=== PATIENT | female | born 1950 | race Caucasian/White ===

== ENCOUNTER 2019-02-19 18:05 | Emergency (ER) | payer MEDICARE, BC ==
[~2019-02-19] VITALS: Ht 154.9 cm; Wt 81.6 kg
--- OUTSIDE RECORDS SUMMARY | 2019-02-19 18:08 | XMS REPORT | Clinical Summary ---
Author Author [facility] Organization [facility] Address Unknown Phone Unavailable Care Team Providers Care Livestock Speculator Name Role Phone Corey Estrada MD PCP Allergies No Known Allergies Medications End Date Status Medication Sig Dispensed Refills Start Date Active acetaminophen (TYLENOL Take by 0 ORAL) mouth. Active cetirizine (ZyrTEC) 5 MG Take 5 mg by 0 tablet mouth daily. Active naproxen sodium (ALEVE Take by mouth 0 ORAL) as needed. 08/25/2018 Discontinued metoprolol succinate XL Take 25 mg by 0 (TOPROL-XL) 25 mg 24 hr mouth daily. tablet 08/25/2018 Discontinued tiZANidine (ZANAFLEX) 2 TAKE ONE (1) 3 MG tablet TABLET(S) BY 7 MOUTH EVERY EIGHT HOURS NEEDED FOR MUSCLE SPASMS FOR UP TO 30 DAYS. 08/25/2018 Discontinued gabapentin (NEURONTIN) May take one 90 capsule 2 100 mg capsule po tid with 7 first dose at night 10/29/2018 cetirizine (ZyrTEC) 5 MG Take 1 tablet 30 tablet 0 tablet (5 mg total) 8 by mouth daily as needed for allergies for up to 30 days. 10/29/2018 guaiFENesin (ROBITUSSIN) Take 10 mL 118 mL 0 100 mg/5 mL syrup (200 mg 8 total) by mouth every 4 (four) hours as needed for cough for up to 30 days. 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 Lymphedema 05/25/2018 Neuropathy 09/22/2017 Pitting edema 06/29/2017 Paraplegia 04/20/2017 Gait abnormality 04/20/2017 Spasticity 04/20/2017 Bilateral foot-drop 04/20/2017 Ischial bursitis of right side 04/20/2017 Bilateral lumbar radiculopathy Polyneuropathy, idiopathic progressive Cervical radiculopathy Myopathy Encounters Care Team Description Date Type Specialty Wilner Stephen MD 01/30/2019 Telephone Neurology Sonia Loera MD 01/11/2019 Lab Lab Wilner Stephen MD Shroff, Sheetal, MD Myopathy (Primary Dx) 01/11/2019 Procedure visit Neurology Emiliana Barba RN Pre-procedure lab exam (Primary Dx); Myopathy 12/06/2018 Orders Only Neurology Emiliana Barba RN Myopathy (Primary Dx) 11/30/2018 Orders Only Neurology Wilner Stephen MD Bilateral lumbar radiculopathy (Primary Dx); Myopathic syndrome; Bilateral foot-drop; Gait abnormality; Cervical radiculopathy; Polyneuropathy, idiopathic progressive; Spasticity; Primary Parkinsonism (HCC); Lymphedema 11/17/2018 Office Visit Neurology Nick Peck MD Janjua, Ejaz, Dyspnea, unspecified type (Primary Dx); Bilateral lumbar radiculopathy; Pitting edema; Abnormal gait; Spasticity 09/28/2018 Emergency General Internal Medicine - 09/29/2018 Wilner Stephen MD Proximal limb muscle weakness; Muscle spasticity 09/14/2018 Hospital Radiology Encounter Emiliana Barba RN Proximal limb muscle weakness (Primary Dx); Muscle spasticity 08/31/2018 Orders Only Neurology Wilner Stephen MD Paraplegia (HCC) (Primary Dx); Proximal limb muscle weakness; Muscle spasticity; Fatigue, unspecified type; Spasticity; Polyneuropathy, idiopathic progressive; Bilateral lumbar radiculopathy; Bilateral foot-drop; Gait abnormality 08/25/2018 Office Visit Neurology Corey Estrada MD Dysphagia, oropharyngeal phase 08/08/2018 Hospital Radiology Encounter Corey Estrada MD Localized edema 08/08/2018 Hospital Procedural Cardiology Encounter Corey Estrada MD Dysphagia, oropharyngeal phase (Primary Dx); Localized edema 07/21/2018 Transcribe Access Orders Wilner Stephen MD 06/28/2018 Telephone Neurology Carolina Alexander MD Spastic paraplegia 06/16/2018 Hospital Radiology Encounter Carolina Alexander MD Spastic paraplegia 06/16/2018 Hospital Radiology Encounter Carolina Alexander MD Spastic paraplegia 06/16/2018 Hospital Radiology Encounter Carolina Alexander MD Spastic paraplegia (Primary Dx); Neuropathy; Polyneuropathy, idiopathic progressive; Ischial bursitis of right side; Spasticity; Bilateral foot-drop; Gait abnormality; Pitting edema; Osteoarthritis of cervical spine, unspecified spinal osteoarthritis complication status; Osteoarthritis of lumbar spine, unspecified spinal osteoarthritis complication status 05/25/2018 Clinical Physical Medicine and Support Rehabilitation after 02/18/2018 Family History Medical History Relation Name Comments Alcohol abuse Mother Diabetes Mother Hepatitis Mother Relation Name Status Comments Mother Social History Date Tobacco Use Types Packs/Day Years Used Former Smoker Smokeless Tobacco: Never Used Alcohol Use Drinks/Week oz/Week Comments No Sex Assigned at Date Recorded Not on file Industry Job Start Date Occupation Not on file Not on file Not on file Travel End Travel History Travel Start No recent travel history available. Last Filed Vital Signs Time Taken Vital Sign Reading 01/11/2019 1:03 PM CDT Blood Pressure 129/85 01/11/2019 1:03 PM CDT Pulse 80 09/29/2018 7:33 AM [employer] Temperature 36.4 C (97.6 F) 09/29/2018 7:33 AM [employer] Respiratory Rate 14 09/29/2018 7:33 AM [employer] Oxygen Saturation 100% - Inhaled Oxygen - Concentration 01/11/2019 1:03 PM CDT Weight 86.2 kg (190 lb) 01/11/2019 1:03 PM CDT Height 154.9 cm (5' 1") 01/11/2019 1:03 PM CDT Body Mass Index 35.9 Plan of Treatment Health Maintenance Due Date Last Done Comments COLON CANCER SCREENING 1998 SHINGLES VACCINES (#1) 1998 65+ PNEUMOCOCCAL VACCINE 2013 (1 of 2 - PCV13) PNEUMOCOCCAL 2013 POLYSACCHARIDE VACCINE AGE 65 AND OVER BREAST CANCER SCREENING 08/03/2016 08/03/2014 INFLUENZA VACCINE 05/25/2019 Procedures Comments Procedure Name Priority Date/Time Associated Diagnosis SURGICAL PATHOLOGY Routine 01/11/2019 REQUEST 4:21 PM CDT PARTIAL THROMBOPLASTIN Routine 01/04/2019 Myopathy TIME (PTT) 12:09 PM CDT Pre-procedure lab exam PROTHROMBIN TIME WITH INR Routine 01/04/2019 Myopathy 12:09 PM CDT Pre-procedure lab exam CBC WITH PLATELET AND Routine 01/04/2019 Myopathy DIFFERENTIAL 12:09 PM CDT Pre-procedure lab exam MISCELLANEOUS REFERRAL Routine 09/29/2018 TEST 12:35 PM [employer] CREATINE KINASE, TOTAL Routine 09/29/2018 (CPK) 6:09 AM [employer] ESTIMATED GFR Routine 09/29/2018 6:09 AM [employer] BASIC METABOLIC PANEL Routine 09/29/2018 6:09 AM [employer] HC COMPLETE BLD COUNT Routine 09/29/2018 W/AUTO DIFF 6:09 AM [employer] CENTROMERE ANTIBODY Routine 09/28/2018 6:30 PM [employer] SCL-70 ANTIBODY Routine 09/28/2018 6:30 PM [employer] XR CHEST 2 VW STAT 09/28/2018 9:17 AM [employer] ECG ED PRELIMINARY Routine 09/28/2018 INTERPRETATION 9:01 AM [employer] ESTIMATED GFR STAT 09/28/2018 9:00 AM [employer] B NATRIURETIC PEP, I-STAT STAT 09/28/2018 9:00 AM [employer] TROPONIN, I-STAT STAT 09/28/2018 9:00 AM [employer] BASIC METABOLIC PANEL STAT 09/28/2018 9:00 AM [employer] HC COMPLETE BLD COUNT STAT 09/28/2018 W/AUTO DIFF 9:00 AM [employer] ECG 12-LEAD STAT 09/28/2018 8:56 AM [employer] EMG Routine 09/20/2018 Proximal limb muscle 3:04 PM [employer] weakness Muscle spasticity MRI THORACIC SPINE WO Routine 09/14/2018 Proximal limb muscle CONTRAST 10:26 AM [employer] weakness Muscle spasticity CBC WITH PLATELET AND Routine 08/31/2018 Proximal limb muscle DIFFERENTIAL 10:44 AM [employer] weakness Muscle spasticity COMPREHENSIVE METABOLIC Routine 08/31/2018 Proximal limb muscle PANEL 10:44 AM [employer] weakness Muscle spasticity HTLV I/II AB WITH REFLEX Routine 08/31/2018 Proximal limb muscle TO CONFIRMATION 10:44 AM [employer] weakness Muscle spasticity C-REACTIVE PROTEIN Routine 08/31/2018 Proximal limb muscle 10:44 AM [employer] weakness Muscle spasticity CREATINE KINASE, TOTAL Routine 08/31/2018 Proximal limb muscle (CPK) 10:44 AM [employer] weakness Muscle spasticity ALDOLASE, SERUM Routine 08/31/2018 Proximal limb muscle 10:44 AM [employer] weakness Muscle spasticity SEDIMENTATION RATE Routine 08/31/2018 Proximal limb muscle 10:44 AM [employer] weakness Muscle spasticity MEÑO SCREEN W IFA W REFLEX Routine 08/31/2018 Proximal limb muscle TO TITER 10:44 AM [employer] weakness Muscle spasticity FL ESOPHAGRAM COMPLETE Routine 08/08/2018 Dysphagia, oropharyngeal 11:36 AM CDT phase US DUPLEX VENOUS LOWER Routine 08/08/2018 Localized edema EXTREMITY BILATERAL 10:50 AM CDT MRI LUMBAR SPINE WO Routine 06/16/2018 Spastic paraplegia CONTRAST 2:20 PM CDT MRI CERVICAL SPINE WO Routine 06/16/2018 Spastic paraplegia CONTRAST 1:59 PM CDT MRI BRAIN WO CONTRAST Routine 06/16/2018 Spastic paraplegia 1:32 PM CDT OR NEEDLE EMG GUIDANCE Routine 05/25/2018 Spastic paraplegia FOR CHEMODENERVATION 2:45 PM CDT OR CHEMODENERVATION 1 Routine 05/25/2018 Spastic paraplegia EXTREMITY EA ADDL 1-4 2:45 PM CDT MUSCLE OR CHEMODENERVATION ONE Routine 05/25/2018 Spastic paraplegia EXTREMITY 1-4 MUSCLE 2:45 PM CDT after 02/18/2018 Results * Surgical pathology request (01/11/2019 4:21 PM CDT) [facility] DEPARTMENT OF PATHOLOGY AND GENOMIC MEDICINE Surgical pathology report See link below for PDF Lab [facility] DEPARTMENT OF Report PATHOLOGY AND GENOMIC MEDICINE Result status This is Final Report for [facility] DEPARTMENT OF [id number] PATHOLOGY AND GENOMIC MEDICINE Performing Organization Address City/State/Zipcode Phone Number [facility] DEPARTMENT OF [address] [place] [address] PATHOLOGY AND GENOMIC MEDICINE * Partial thromboplastin time, activated (01/04/2019 12:09 PM CDT) PTT 26 22 - 34 sec [employer] Comment: CHANTILLY This test has not been validated for monitoring unfractionated heparin therapy. For testing that is validated for this type of therapy, please refer to the Heparin Anti-Xa assay (test code 60918). For additional information, please refer to http://[employer].SEJENT/faq/VMR549 (This link is being provided for informational/educational purposes only.) Specimen Blood Resulting Agency Comment Performing Organization Information: Site ID: [id number] Name: [facility] Lab Address: [address] [place] [id number] Director: Yamileth Reilly Performing Organization Address City/[facility]/Zipcode Phone Number [place] [phone] * Prothrombin time with INR (01/04/2019 12:09 PM CDT) INR 0.9 [facility] Comment: [place]ANTILLY Reference Range 0.9-1.1 Moderate-intensity Warfarin Therapy 2.0-3.0 Higher-intensity Warfarin Therapy 3.0-4.0 Prothrombin time 9.9 9.0 - 11.5 sec [facility] Comment: [place] For more information on this test, go to: http://education.StoneRiver/faq/YSV825 Specimen Blood Resulting Agency Comment Performing Organization Information: Site ID: [id number] Name: [facility] Address: [address] [place], [place] [id number] Director: Yamileth Reilly Performing Organization Address City/[facility]/Zipcode Phone Number [place] [address] [address] * CBC with platelet and differential (01/04/2019 12:09 PM CDT) Only the most recent of 4 results within the time period is included. WBC 3.7 (L) 3.8 - 10.8 Thousand/uL [facility] RBC 4.69 3.80 - 5.10 Million/uL [facility] HGB 13.6 11.7 - 15.5 g/dL [facility] HCT 40.9 35.0 - 45.0 % [facility] MCV 87.2 80.0 - 100.0 fL [facility] MCH 29.0 27.0 - 33.0 pg [facility] MCHC 33.3 32.0 - 36.0 g/dL [facility] RDW 12.7 11.0 - 15.0 % [facility] Platelet count 256 140 - 400 Thousand/uL [facility] MPV 10.6 7.5 - 12.5 fL [facility] Neutrophils, absolute 1,761 1,500 - 7,800 cells/uL [facility] Lymphocytes, absolute 1,513 850 - 3,900 cells/uL [facility] Monocytes, absolute 259 200 - 950 cells/uL [facility] Eosinophils, absolute 137 15 - 500 cells/uL [facility] Basophils, absolute 30 0 - 200 cells/uL [facility] [employer] CHANTILLY Neutrophils 47.6 % [facility] Lymphocytes 40.9 % [facility] Monocytes 7.0 % [facility] Eosinophils 3.7 % [facility] Basophils + RC 0.8 % [employer] [facility] Specimen Blood Resulting Agency Comment Performing Organization Information: Site ID: [id number] Name: [facility] Lab Address: [address] [place] [address] Director: Yamileth Reilly Performing Organization Address [facility] Phone Number [place] [address] [address] * Miscellaneous referral test (09/29/2018 12:35 PM [employer]) [facility] test name Myositis Extended Panel [facility] Misc test result see note [facility] Comment: Myositis Extended Panel [facility] test code [id number] SSA-52 (Ro52) (MATILDE) Antibody, IgG 36 AU/mL (Ref Interval: 0-40) INTERPRETIVE INFORMATION: SSA-52 (Ro52) (MATILDE) Antibody, IgG 29 AU/mL or Less ............. Negative 30 - 40 AU/mL ................ Equivocal 41 AU/mL or Greater .......... Positive SSA-52 (Ro52) and/or SSA-60 (Ro60) antibodies are associated with a diagnosis of Sjogren syndrome, systemic lupus erythematosus (SLE), and systemic sclerosis. SSA-52 antibody overlaps significantly with the major SSc-related antibodies. SSA-52 (Ro52) antibody occurs frequently in patients with inflammatory myopathies, often in the presence of interstitial lung disease. - - - - - - - - - - - - - - - - - - - - - - - - - - - - - - SSA-60 (Ro60) (MATILDE) Antibody, IgG 9 AU/mL (Ref Interval: 0-40) REFERENCE INTERVAL: SSA-60 (Ro60) (MATILDE) Antibody, IgG 29 AU/mL or Less ............. Negative 30 - 40 AU/mL ................ Equivocal 41 AU/mL or Greater .......... Positive - - - - - - - - - - - - - - - - - - - - - - - - - - - - - - Ribonucleic Protein (U1) (MATILDE) Ab, IgG 0 AU/mL (Ref Interval: 0-40) INTERPRETIVE INFORMATION: Ribonucleic Protein (MATILDE)Antibody, IgG 29 AU/mL or Less ............. Negative 30 - 40 AU/mL ................ Equivocal 41 AU/mL or Greater .......... Positive BENCH EXAMINER antibody is seen in 95-100 percent of mixed connective tissue disease and is considered specific for this syndrome if other antibodies are negative; BENCH EXAMINER is also present in 20-30 percent of systemic lupus erythematosus and 15-25 percent of progressive systemic sclerosis. BENCH EXAMINER antigens also contain epitopes that are immunologically identical to free Stephen antigens, therefore, the Stephen antibody response must be considered when interpreting BENCH EXAMINER results. - - - - - - - - - - - - - - - - - - - - - - - - - - - - - - Radha-1 (Histidyl-tRNA Synthetase) Ab, IgG 0 AU/mL (Ref Interval: 0-40) INTERPRETIVE INFORMATION:Radha-1 Antibody, IgG 29 AU/mL or less.........Negative 30-40 AU/mL..............Equivocal 41 AU/mL or greater......Positive - - - - - - - - - - - - - - - - - - - - - - - - - - - - - - PL-12 (alanyl-tRNA synthetase) Antibody Negative (Ref Interval: Negative) - - - - - - - - - - - - - - - - - - - - - - - - - - - - - - PL-7 (threonyl-tRNA synthetase) Antibody Negative (Ref Interval: Negative) - - - - - - - - - - - - - - - - - - - - - - - - - - - - - - EJ (glycyl-tRNA synthetase) Antibody Negative (Ref Interval: Negative) - - - - - - - - - - - - - - - - - - - - - - - - - - - - - - OJ (isoleucyl-tRNA synthetase) Antibody Negative (Ref Interval: Negative) - - - - - - - - - - - - - - - - - - - - - - - - - - - - - - SRP (Signal Recognition Particle) Ab Negative (Ref Interval: Negative) - - - - - - - - - - - - - - - - - - - - - - - - - - - - - - Ku Antibody Negative (Ref Interval: Negative) - - - - - - - - - - - - - - - - - - - - - - - - - - - - - - PM/Scl 100 Antibody, IgG Negative (Ref Interval: Negative) INTERPRETIVE INFORMATION: PM/Scl-100 Antibody, IgG by Immunobl ot The presence of PM/Scl-100 IgG antibody along with a positive MEÑO IFA nucleolar pattern is associated with connective tissue diseases such as polymyositis (PM), dermatomyositis (DM), systemic sclerosis (SSc), and polymyositis/systemic sclerosis overlap syndrome. The clinical relevance of PM/Scl-100 IgG antibody with a negative MEÑO IFA nucleolar pattern is unknown. PM/Scl-100 is the main target epitope of the PM/Scl complex, although antibodies to other targets not detected by this assay may occur. Test developed and characteristics determined by [facility] [employer]. See Compliance Statement D: [employer]/nap- Naturally Attached Parents - - - - - - - - - - - - - - - - - - - - - - - - - - - - - - U2 sn (small nuclear) BENCH EXAMINER Antibody Negative (Ref Interval: Negative) - - - - - - - - - - - - - - - - - - - - - - - - - - - - - - Fibrillarin (U3 BENCH EXAMINER) Ab, IgG Negative (Ref Interval: Negative) Interpretive Information: Fibrillarin (U3 BENCH EXAMINER) Antibody, IgG The presence of fibrillarin (U3-BENCH EXAMINER) IgG antibodies in association with an MEÑO IFA nucleolar pattern is suggestive of systemic sclerosis (SSc). In SSc, these antibodies are associated with distinct clinical features, such as younger age at disease onset, frequent internal organ involvement (pulmonary hypertension, myositis and renal disease). Fibrillarin antibodies are detected more frequently in patients with SSc compared to other ethnic groups. Strong correlation with MEÑO IFA results is recommended. In a multi-ethnic cohort of SSc patients (n=98), U3-BENCH EXAMINER antibodies detected by immunoblot had an agreement of 98.9 percent with the gold standard immunoprecipitation (IP) assay. Approximately 71 percent (5/7) of the borderline U3-BENCH EXAMINER results with MEÑO nucleolar pattern in this cohort were IP negative. Test developed and characteristics determined by [employer]. See Compliance Statement D: [employer]/nap- Naturally Attached Parents - - - - - - - - - - - - - - - - - - - - - - - - - - - - - - Mi-2 (nuclear helicase protein) Antibody Negative (Ref Interval: Negative) - - - - - - - - - - - - - - - - - - - - - - - - - - - - - - P155/140Antibody Negative (Ref Interval: Negative) - - - - - - - - - - - - - - - - - - - - - - - - - - - - - - TIF-1 gamma (155 kDa) Antibody Negative TIF-1 gamma antibody negative by line immunoassay. No band corresponding to 155 KDa observed by immunoprecipitation. - - - - - - - - - - - - - - - - - - - - - - - - - - - - - - SAE1 (SUMO activating enzyme) Antibody Negative SAE1 antibody negative by line immunoassay. No bands corresponding to 90 and 40 Kda observed by immunoprecipitation. - - - - - - - - - - - - - - - - - - - - - - - - - - - - - - MDA5 (CADM-140) Antibody Negative MDA-5 antibody negative by line immunoassay. No band corresponding to 140 KDa observed by immunoprecipitation. - - - - - - - - - - - - - - - - - - - - - - - - - - - - - - NXP-2 (Nuclear matrix protein-2) Ab Negative NXP-2 antibody negative by line immunoassay. No band corresponding to 140 KDa observed by immunoprecipitation. - - - - - - - - - - - - - - - - - - - - - - - - - - - - - - Myositis Panel Interpretive Data See Note INTERPRETIVE INFORMATION: Myositis Extended Panel If present, myositis-specific antibodies (MSA) are specific for myositis, and may be useful in establishing diagnosis as well as prognosis. MSAs are generally regarded as mutually exclusive with rare exceptions; the occurrence of two or more MSAs should be carefully evaluated in the context of patient's clinical presentation. Myositis-associated antibodies (MAA) may be found in patients with CTD including overlap syndromes, and are generally not specific for myositis. The following table will help in identifying the association of any antibodies found as either MSAs or Gem. Antibody Specificity . . . . . . . . . . . . MSA . . . . MAA SSA 52 (Ro) (MATILDE) Antibody IgG . . . . . . . . . . . . .X SSA 60 (Ro) (MATILDE) Antibody IgG . . . . . . . . . . . . .X Ribonucleic Protein (U1) (MATILDE) Ab, IgG . . . . . . . . .X Radha-1 (histidyl-tRNA synthetase) Ab, IgG. .X PL-12 (alanyl-tRNA synthetase) Antibody. .X PL-7 (threonyl-tRNA synthetase) Antibody . .X EJ (glycyl-tRNA synthetase) Antibody . . . .X OJ (isoleucyl-tRNA synthetase) Antibody. .X SRP (Signal Recognition Particle) Ab . . . .X Ku Antibody. . . . . . . . . . . . . . . . . . . . . .X PM/SCL 100 Antibody, IgG . . . . . . . . . . . . . . . .X U2 sn (small nuclear) BENCH EXAMINER Antibody . . . . . . . . . . .X Fibrillarin (U3 BENCH EXAMINER) Ab, IgG . . . . . . . . . . . . . .X Mi-2 (nuclear helicase protein) Antibody . .X P155/140 Antibody. . . . . . . . . . . . .X TIF-1 gamma (155 kDa) Antibody . . . . . .X SAE1 (SUMO activating enzyme) Antibody . . .X MDA5 (CADM-140) Antibody . . . . . . . . . .X NXP-2 (Nuclear matrix proten-2) Ab . . . . .X Test developed and characteristics determined by [facility]. See Compliance Statement D: [employer] Test performed by: [facility] [address] [place], [place] Performing Organization Address City/State/Zipcode Phone Number [facility] [address] [place] [address] [facility] [address] [place] [address] * Estimated GFR (09/29/2018 6:09 AM [employer]) Only the most recent of 2 results within the time period is included. Estimated GFR >=90 mL/min/1.73 m2 [facility] Comment: HOSPITAL CatergoryUnitsInte rpretation G1 >=90 Normal or high G2 60-89Mildly decreased [id number] Mildly to moderately decreased H9h57-41 Moderately to severely decreased G4 15-29Severely decreased G5 <15Kidney failure The eGFR was calculated using the Chronic Kidney Disease Epidemiology Collaboration (CKD-EPI) equation. Interpretation is based on recommendations of the National Kidney Foundation-Kidney Disease Outcomes Quality Initiative (NKF-KDOQI) published in 2014. Specimen Plasma specimen Performing Organization Address City/[facility] Hospital[facility] Phone Number [facility] [place] [address] [facility] [address] * Creatine kinase, total (CPK) (09/29/2018 6:09 AM [employer]) Only the most recent of 2 results within the time period is included. Creatine kinase 65 26 - 192 U/L [facility] Specimen Plasma specimen Performing Organization Address [facility] Phone Number [facility] [place] [address] PATH[facility] [address] * Basic metabolic panel (09/29/2018 6:09 AM [employer]) Only the most recent of 2 results within the time period is included. Sodium 142 135 - 148 mEq/L [facility] Potassium 4.0 3.5 - 5.0 mEq/L [facility] Chloride 106 98 - 112 mEq/L [facility] CO2 23 (L) 24 - 31 mEq/L [facility] Anion gap 13@ANIO 7 - 15 mEq/L [facility] BUN 12 8 - 23 mg/dL [facility] Creatinine 0.64 0.50 - 0.90 mg/dL [facility] Glucose 102 (H) 65 - 99 mg/dL [facility] Calcium 9.0 8.8 - 10.2 mg/dL [facility] Specimen Plasma specimen Performing Organization Address [facility] Phone Number [facility] [place] [address] PATH[facility] [address] * Scl-70 antibody (09/28/2018 6:30 PM [employer]) Scleroderma SCL-70 Ab <0.2 0.0 - 0.9 AI [facility] Scl-70 antibody interp Negative [facility] Comment: HOSPITAL Anti-Scl-70 (topoisomerase I) antibodies are found in patients with systemic sclerosis (SSc or scleroderma), and have been reported to be predictive of diffuse cutaneous involvement. Anti-Scl-70 antibodies may also be present in patients with systemic lupus erythematosus (SLE). Specimen Serum Performing Organization Address City/State/Zipcode Phone Number [facility] [place] [address] PATHOLOGY AND GENOMIC MEDICINE [address] * Centromere antibody (09/28/2018 6:30 PM [employer]) Centromere antibody <0.2 0.0 - 0.9 [facility] Centromere antibody Negative [facility] interp Comment: [facility] Anti-centromere antibodies are found in patients with systemic sclerosis (SSc or scleroderma), especially for those with limited cutaneous or CREST syndrome. Anti-centromere antibodies may also be found in patients with other rheumatic or connective tissue diseases. Specimen Serum Performing Organization Address [facility] Phone Number [facility] [place] [address] PATHOLOGY AND [facility] MEDIC[facility] [address] * XR Chest 2 Vw (09/28/2018 9:17 AM [employer]) Narrative Performed At EXAMINATION:XR CHEST 2 VW [facility] CLINICAL HISTORY:Shortness of breath COMPARISON:08/03/2014 FINDINGS: Two views of the chest demonstrate normal cardiomediastinal silhouette. Pulmonary vasculature is within normal limits. Both lungs are clear. No pleural disease is identified. Regional osseous structures is unremarkable. IMPRESSION: No radiographic evidence of acute cardiopulmonary process or active disease of the chest. [facility]-[id number] Procedure Note Interface, Radiology Results Incoming - 09/28/2018 9:55 AM [employer] EXAMINATION: XR CHEST 2 VW CLINICAL HISTORY: Shortness of breath COMPARISON: 08/03/2014 FINDINGS: Two views of the chest demonstrate normal cardiomediastinal silhouette. Pulmonary vasculature is within normal limits. Both lungs are clear. No pleural disease is identified. Regional osseous structures is unremarkable. IMPRESSION: No radiographic evidence of acute cardiopulmonary process or active disease of the chest. [facility]-[id number] Performing Organization Address City/State/Zipcode Phone Number [address] [place] [address] * ECG ED Preliminary Interpretation - Not an Order (09/28/2018 9:01 AM [employer]) Narrative Performed At Nick Peck MD 09/28/2018 10:49 AM ECG ED Preliminary Interpretation - Not an Order Performed by: Nick Peck MD Authorized by: Nick Peck MD Rate: ECG rate:85 ECG rate assessment: normal Rhythm: Rhythm: sinus rhythm ST segments: ST segments:Normal T waves: T waves: normal * Troponin, I-Stat (09/28/2018 9:00 AM [employer]) Troponin, I-Stat 0.00 0.00 - 0.08 ng/mL [facility] Comment: [facility] 0.09 - 1.49 [facility] ng/mlMay indicate increased risk of acute coronary syndrome. >=1.5 ng/ml Consistent with acute myocardial infarction. The diagnostic value of a single normal or non-diagnostic result is questionable.Serial samples at 2-6 hour intervals are required to rule out acute myocardial injury. Specimen Plasma specimen Performing Organization Address City/[facility]/[place] [address] PATHOLOGY AND GENOMIC MEDICINE[address] * B natriuretic pep, I-Stat (09/28/2018 9:00 AM [employer]) BNP, I-Stat <20 0 - 100 pg/mL [facility] Specimen Blood Performing Organization Address City/[facility]/[place] [address] PATHOLOGY AND GENOMIC MEDICINE[address] * ECG 12 lead (09/28/2018 8:56 AM [employer]) Ventricular rate 85 [facility] Atrial rate 85 [facility] OR interval 146 [facility] QRSD interval 74 [facility] QT interval 378 [facility] QTC interval 449 [facility] P axis 1 39 [facility] QRS axis 1 -3 [facility] T wave axis 41 [facility] EKG impression Normal sinus rhythm-Normal [facility] ECG-No previous ECGs available- Narrative Performed At Performing Organization Address City/State/Zipcode Phone Number [facility] [address] [place] [address] * EMG general request (09/20/2018 3:04 PM [employer]) Narrative Performed At * MRI Thoracic Spine Wo Contrast (09/14/2018 10:26 AM [employer]) Narrative Performed At EXAMINATION:MRI THORACIC SPINE WO CONTRAST [facility] CLINICAL HISTORY:M62.89 Other specified disorders of muscle, M62.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 Sagittal and axial images of the thoracic spine were obtained. FINDINGS: There is slight exaggeration of the midthoracic kyphosis. There is no spondylolisthesis or fracture. There is no osseous edema. The spinal cord is intact. There is no cord atrophy, signal change or expansion. The spinal canal is widely patent. There is no significant posterior spondylosis. There is no canal narrowing. Paraspinous soft tissue shows no mass or adenopathy. There is no aneurysm. The paraspinous muscles are intact. Sagittal imaging shows preservation of the perineural fat without significant foraminal narrowing. There is mild foraminal narrowing noted in the lower thoracic spine at T9-T10 and T10-T11. No significant abnormalities identified. There is no aggressive osseous lesions. There is mild anterior osteophytosis in the midthoracic spine. IMPRESSION: There is mild thoracic spondylosis without stenosis or acute osseous abnormality. 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 Sagittal and axial images of the thoracic spine were obtained. FINDINGS: There is slight exaggeration of the midthoracic kyphosis. There is no spondylolisthesis or fracture. There is no osseous edema. The spinal cord is intact. There is no cord atrophy, signal change or expansion. The spinal canal is widely patent. There is no significant posterior spondylosis. There is no canal narrowing. Paraspinous soft tissue shows no mass or adenopathy. There is no aneurysm. The paraspinous muscles are intact. Sagittal imaging shows preservation of the perineural fat without significant foraminal narrowing. There is mild foraminal narrowing noted in the lower thoracic spine at T9-T10 and T10-T11. No significant abnormalities identified. There is no aggressive osseous lesions. There is mild anterior osteophytosis in the midthoracic spine. IMPRESSION: There is mild thoracic spondylosis without stenosis or acute osseous abnormality. [id number] Performing Organization Address City/State/Zipcode Phone Number M[facility]AR[facility] [address] [place] [address] * MEÑO SCREEN W IFA W REFLEX TO TITER (08/31/2018 10:44 AM [employer]) MEÑO screen NEGATIVE NEGATIVE [facility] Comment: Goods PlatformCRITICAL ACCESS HOSPITALDONALDO MEÑO IFA is a first line screen II for detecting the presence of up to approximately 150 autoantibodies in various autoimmune diseases. A negative MEÑO IFA result suggests MEÑO-associated autoimmune diseases are not present at this time. Visit Physician FAQs for interpretation of all antibodies in the [place], prevalence, and association with diseases at http://[email or web address]/ faq/LAB238 Specimen Blood Narrative Performed At FASTING:YES [facility] FASTING: YES Resulting Agency Comment Performing Organization Information: Site ID: [id number] Name: [facility] Address: [address] [place] [phone] Director: Dr. Wilner Knowles Performing Organization Address [facility] Hospitalcode Phone Number [address] [address] II * HTLV I/II Ab with reflex to confirmation (08/31/2018 10:44 AM [employer]) HTLV I/II Ab Nonreactive Nonreactive [facility] Comment: [employer] The HTLV-I/HTLV-II antibody [employer] [place] [place] test is FDA cleared/ approved to screen donors.Use for screening in non-donors has been validated by [employer]. Specimen Blood Narrative Performed At FASTING:YES [facility] FASTING: YES Resulting Agency Comment Performing Organization Information: Site ID: AMD Name: [facility] Address: [address] [place] [address] Director: Ezequiel Lobo M.D.,PhD Performing Organization Address City/State/[facility] Hospital[facility] Phone Number [facility] [address] [place], [place] [phone] [place] * Aldolase, serum (08/31/2018 10:44 AM [employer]) Aldolase 5.6 < OR=8.1 U/L [facility] Specimen Blood Narrative Performed At FASTING:YES [facility] FASTING: YES Resulting Agency Comment Performing Organization Information: Site ID: IG Name: [facility] Address: [address] [place] [phone] Director: Dr. Wilner Knowles Performing Organization Address City/[facility] Phone Number [address] [address] II * Sedimentation rate (08/31/2018 10:44 AM [employer]) Sedimentation rate 11 < OR=30 mm/h [employer] [facility] Specimen Blood Narrative Performed At FASTING:YES [facility] FASTING: YES Resulting Agency Comment Performing Organization Information: Site ID: RGA Name: [facility] Address: [address] [place] [phone] Director: Yamileth Reilly Performing Organization Address [facility] Phone Number [facility] [address] [address] * C-reactive protein (08/31/2018 10:44 AM [employer]) CRP 0.9 <8.0 mg/L [employer] [place] Specimen Blood Narrative Performed At FASTING:YES [facility] FASTING: YES Resulting Agency Comment Performing Organization Information: Site ID: RGA Name: [facility] Address: [address] [place] [phone] Director: Yamileth Reilly Performing Organization Address [facility] Hospitalcode Phone [place] [address] * Comprehensive metabolic panel (08/31/2018 10:44 AM [employer]) Glucose 93 65 - 99 mg/dL [employer] Comment: [facility] Fasting reference interval BUN, whole blood 11 7 - 25 mg/dL [facility] Creatinine 0.73 0.60 - 0.93 mg/dL [facility] Comment: [facility] For patients >49 years of age, the reference limit for Creatinine is approximately 13% higher for people identified as -Malagasy. EGFR Non-Afr. Malagasy 83 > OR=60 mL/min/1.73m2 [facility] EGFR 97 > OR=60 mL/min/1.73m2 [facility] BUN/creatinine ratio NOT APPLICABLE 6 - 22 (calc) [facility] Sodium 139 135 - 146 mmol/L [facility] Potassium 4.4 3.5 - 5.3 mmol/L [facility] Chloride 104 98 - 110 mmol/L [facility] CO2 27 20 - 32 mmol/L [facility] Calcium 9.4 8.6 - 10.4 mg/dL [facility] Protein 6.6 6.1 - 8.1 g/dL [facility] Albumin, S 4.2 3.6 - 5.1 g/dL [facility] Globulin, total 2.4 1.9 - 3.7 g/dL (calc) [facility] Albumin/globulin ratio 1.8 1.0 - 2.5 (calc) [facility] Total bilirubin 0.5 0.2 - 1.2 mg/dL [facility] Alkaline phosphatase 53 33 - 130 U/L [facility] AST 16 10 - 35 U/L [facility] ALT 15 6 - 29 U/L [facility] Specimen Blood Narrative Performed At FASTING:YES [facility] FASTING: YES Resulting Agency Comment Performing Organization Information: Site ID: RGA Name: [facility] Lab Address: [address] [place] [phone] Director: Yamileth Reilly Performing Organization Address City/State/[place] [address] * [place] Esophagram Complete (08/08/2018 11:36 AM CDT) Narrative Performed At EXAMINATION:FL ESOPHAGRAM COMPLETE HM [facility] CLINICAL HISTORY:R13.12 Dysphagiaoropharyngeal phase, R13.12 COMPARISON:None. Fluoroscopy time: 1.2 minutes Fluoroscopic images: 21 FINDINGS: The patient swallowed air producing granules and barium without difficulty. There is episodic interruption of the primary stripping wave with diffuse esophageal spasm. Type I sliding hiatal hernia with an incomplete Schatzki ring. No producible gastroesophageal reflux. IMPRESSION: Diffuse esophageal spasm. Type I sliding hiatal hernia with an incomplete Schatzki B ring. [facility]-[id number] Procedure Note Interface, Radiology Results Incoming - 08/08/2018 11:45 AM CDT EXAMINATION: FL ESOPHAGRAM COMPLETE CLINICAL HISTORY: R13.12 Dysphagia oropharyngeal phase, R13.12 COMPARISON: None. Fluoroscopy time: 1.2 minutes Fluoroscopic images: 21 FINDINGS: The patient swallowed air producing granules and barium without difficulty. There is episodic interruption of the primary stripping wave with diffuse esophageal spasm. Type I sliding hiatal hernia with an incomplete Schatzki ring. No producible gastroesophageal reflux. IMPRESSION: Diffuse esophageal spasm. Type I sliding hiatal hernia with an incomplete Schatzki B ring. [facility]-[id number] Performing Organization Address City/State/Zipcode Phone Number [facility] [address] [place] [address] * Pv duplex venous lower extremity (08/08/2018 10:50 AM CDT) Narrative Performed At [facility] Vascular Ultrasound Laboratory Lower Extremity Venous Report [address] [place] [address] Pat.Name:BASILIO DE LEON Pat.ID:[id number] .Date: 08/08/2018Refer.MD:COREY ESTRADA MD Exam Time: 10:21:00 AM Study Type:LE Venous Height:61inWeight:180lb BSA: 1.81 m2 DOBAge:1950,68Y Sex: FEMALESonogrphr: Renetta Connell RVT Pat. Stat.:OutpatientRoom:[facility] 16 TapeVol: SD, CPT - 4: 69474 Echo Event ID:[id number] Order ID:[id number] Reason for Study:Swelling and numbness of the legs. Procedures:Colorflow, Grayscale/2D, Pulsed wave Doppler Race:C SUMMARY: DUPLEX SCAN OBSERVATIONS Deep VeinsSuperficial Veins RightLeft RightLeft GSV (prox) NormalNormal CFV Normal Normal (above knee) Femoral Normal Normal GSV (dist) Normal Normal Profunda Normal Normal (below knee) Popliteal Normal Normal PT (prox) Normal NormalSSV Normal Normal PT (dist) Normal Normal Peroneal Normal Normal RIGHT:There is normal compressibility with no evidence of echogenic material noted within the lumen of the visualized veins. Colorflow and Doppler signals are normal. Poor views of peronealveins in worthington scale due to body habitus. LEFT:There is normal compressibility with no evidence of echogenic material noted within the lumen of the visualized veins.Colorflow and Doppler signals are normal.Poor views of peronealveins in worthington scale due to body habitus. PRELIMINARY FINDINGS 1. Normal venous duplex exam of the visualized veins, bilaterally. PHYSICIAN INTERPRETATION Venous examination of the both lower extremities demonstrated no evidence of venous thrombosis in the visualized veins.Normal compressibility and augmentation of all veins visualized. Signed 08/08/2018 11:25 AM Raulito Meyer MD, RPVI Procedure Note Interface, Radiology Results In - 08/08/2018 11:31 AM CDT Vascular Ultrasound Laboratory Lower Extremity Venous Report [address] [place] [address] Pat.Name: BASILIO DE LEON Pat.ID: [id number] .Date: 08/08/2018 Refer.MD: COREY ESTRADA MD Exam Time: 10:21:00 AM Study Type:LE Venous Height: 61in Weight: 180lb BSA: 1.81 m2 Age: 9 1950,68Y Sex: FEMALE Sonogrphr: Renetta Connell RVT Pat. Stat.:Outpatient Room: [facility] 16 Tape Vol: SD, CPT - 4: 71459 Echo Event ID:[id number] Order ID: [id number] Reason for Study:Swelling and numbness of the legs. Procedures:Colorflow, Grayscale/2D, Pulsed wave Doppler Race: C SUMMARY: DUPLEX SCAN OBSERVATIONS Deep Veins Superficial Veins Right Left Right Left GSV (prox) Normal Normal CFV Normal Normal (above knee) Femoral Normal Normal GSV (dist) Normal Normal Profunda Normal Normal (below knee) Popliteal Normal Normal PT (prox) Normal Normal SSV Normal Normal PT (dist) Normal Normal Peroneal Normal Normal RIGHT: There is normal compressibility with no evidence of echogenic material noted within the lumen of the visualized veins. Colorflow and Doppler signals are normal. Poor views of peroneal veins in worthington scale due to body habitus. LEFT: There is normal compressibility with no evidence of echogenic material noted within the lumen of the visualized veins.Colorflow and Doppler signals are normal. Poor views of peroneal veins in worthington scale due to body habitus. PRELIMINARY FINDINGS 1. Normal venous duplex exam of the visualized veins, bilaterally. PHYSICIAN INTERPRETATION Venous examination of the both lower extremities demonstrated no evidence of venous thrombosis in the visualized veins. Normal compressibility and augmentation of all veins visualized. 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 FINDINGS: There is a mild spondylolisthesis grade 1 of L4 on L5.Vertebral alignment is otherwise satisfactory. Vertebral heights are maintained. There is normal-appearing conus medullaris which terminates at L1. Cauda equina is not grossly compressed.. Vertebral heights are maintained. There is mild prominence of the right renal pelvis without ureteral dilatation suggesting an element of mild UPJ narrowing although questioned significance. L1-2: The foramina are patent bilaterally. The disc margin is smooth central canal and lateral recesses are maintained facets are grossly hypertrophic. L2-3: The foramina are patent bilaterally. The disc margin appears smooth. The central canal and lateral recesses are maintained facets are markedly hypertrophic. L3-4: Foramina are patent bilaterally. There is a minimal diffuse disc protrusion. The AP canal measures 9 mm. The lateral recesses are mildly narrowed by gross dorsal facet and ligamentous hypertrophy. L4-5: The foramina are narrowed caudally bilaterally although this is minimal. This is related to the spondylolisthesis. The central canal appears patent however the lateral recesses are narrowed bilaterally greater to the right by gross dorsal facet and ligamentous hypertrophy. L5-S1: The foramina are patent bilaterally. The disc margin appears smooth. The central canal and lateral recesses are maintained facets are moderately hypertrophic. IMPRESSION: 1. There is borderline central canal and moderate bilateral lateral recess stenosis at the L4-5 level related to a grade 1 spinal listhesis of L4 on L5 and gross dorsal facet and ligamentous hypertrophy. 2. Borderline central canal and bilateral lateral recess narrowing at the L3-4 level related probably to gross dorsal facet and ligamentous hypertrophy and a minimal protrusion. 3. Pronounced facet hypertrophy throughout the lumbar region. [id number] Procedure Note Hm Interface, Radiology Results - 06/16/2018 2:46 PM CDT EXAMINATION: MRI LUMBAR SPINE WO CONTRAST CLINICAL HISTORY: G82.20 Paraplegia unspecified, spastic paraplegia COMPARISON: None. FINDINGS: There is a mild spondylolisthesis grade 1 of L4 on L5. Vertebral alignment is otherwise satisfactory. Vertebral heights are maintained. There is normal-appearing conus medullaris which terminates at L1. Cauda equina is not grossly compressed.. Vertebral heights are maintained. There is mild prominence of the right renal pelvis without ureteral dilatation suggesting an element of mild UPJ narrowing although questioned significance. L1-2: The foramina are patent bilaterally. The disc margin is smooth central canal and lateral recesses are maintained facets are grossly hypertrophic. L2-3: The foramina are patent bilaterally. The disc margin appears smooth. The central canal and lateral recesses are maintained facets are markedly hypertrophic. L3-4: Foramina are patent bilaterally. There is a minimal diffuse disc protrusion. The AP canal measures 9 mm. The lateral recesses are mildly narrowed by gross dorsal facet and ligamentous hypertrophy. L4-5: The foramina are narrowed caudally bilaterally although this is minimal. This is related to the spondylolisthesis. The central canal appears patent however the lateral recesses are narrowed bilaterally greater to the right by gross dorsal facet and ligamentous hypertrophy. L5-S1: The foramina are patent bilaterally. The disc margin appears smooth. The central canal and lateral recesses are maintained facets are moderately hypertrophic. IMPRESSION: 1. There is borderline central canal and moderate bilateral lateral recess stenosis at the L4-5 level related to a grade 1 spinal listhesis of L4 on L5 and gross dorsal facet and ligamentous hypertrophy. 2. Borderline central canal and bilateral lateral recess narrowing at the L3-4 level related probably to gross dorsal facet and ligamentous hypertrophy and a minimal protrusion. 3. Pronounced facet hypertrophy throughout the lumbar region. [id number] Performing Organization Address City/State/Zipcode Phone Number [facility] [address] [place] [address] * MRI Cervical Spine Wo Contrast (06/16/2018 1:59 PM CDT) Narrative Performed At EXAM:MRI CERVICAL SPINE WO CONTRAST [facility] COMPARISON: None. 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 FINDINGS: Sagittal images demonstrate minimal anterior degenerative subluxation at C4-5. There is mild disc space narrowing at C5-6. There is a capacious spinal canal. Axial images demonstrate the following: C1-2: No significant abnormalities. C2-3: Minimal facet joint degenerative changes without stenosis. C3-4: Right uncinate and facet joint degenerative changes with right foraminal stenosis. C4-5: Left uncinate and facet joint degenerative changes with relatively severe left foraminal stenosis. C5-6: Bilateral uncinate and facet joint degenerative changes with bilateral foraminal stenosis, slightly worse on the right. C6-7: There is annular bulging and spondylosis with moderate right foraminal stenosis. C7-T1: No significant bulge or stenosis. No cord compression or abnormal cord signal. IMPRESSION: Capacious spinal canal without evidence of central canal stenosis or cord compression. Multilevel spondylotic foraminal stenosis as discussed above. No intrinsic signal abnormalities within the cord. [id number] Procedure Note Interface, Radiology Results Incoming - 06/16/2018 2:06 PM CDT EXAM: MRI CERVICAL SPINE WO CONTRAST COMPARISON: None. CLINICAL HISTORY: G82.20 Paraplegia unspecified, spastic paraplegia TECHNIQUE: Multiplanar multisequence examination was performed Without contrast. FINDINGS: Sagittal images demonstrate minimal anterior degenerative subluxation at C4-5. There is mild disc space narrowing at C5-6. There is a capacious spinal canal. Axial images demonstrate the following: C1-2: No significant abnormalities. C2-3: Minimal facet joint degenerative changes without stenosis. C3-4: Right uncinate and facet joint degenerative changes with right foraminal stenosis. C4-5: Left uncinate and facet joint degenerative changes with relatively severe left foraminal stenosis. C5-6: Bilateral uncinate and facet joint degenerative changes with bilateral foraminal stenosis, slightly worse on the right. C6-7: There is annular bulging and spondylosis with moderate right foraminal stenosis. C7-T1: No significant bulge or stenosis. No cord compression or abnormal cord signal. IMPRESSION: Capacious spinal canal without evidence of central canal stenosis or cord compression. Multilevel spondylotic foraminal stenosis as discussed above. No intrinsic signal abnormalities within the cord. 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 TECHNIQUE: Multiplanar and multisequence MRI imaging of the brain was obtained without contrast. FINDINGS: There is no evidence of acute infarct, intracranial hemorrhage or mass, hydrocephalus or midline shift. There is nonspecific enlargement of the ventricles and extra axial space greater in the anterior region. There are mild scattered nonspecific white matter changes. The upper sella is partially empty. The orbits, sinuses and mastoid air cells do not show significant abnormality. IMPRESSION: No acute findings in the brain or extra-axial region. [facility]-[id number] Procedure Note Interface, Radiology Results [facility] - 06/16/2018 1:37 PM CDT EXAMINATION: MRI BRAIN WO CONTRAST CLINICAL HISTORY: G82.20 Paraplegia unspecified, spastic paraplegia COMPARISON: MRI brain from September 12, 2014. TECHNIQUE: Multiplanar and multisequence MRI imaging of the brain was obtained without contrast. FINDINGS: There is no evidence of acute infarct, intracranial hemorrhage or mass, hydrocephalus or midline shift. There is nonspecific enlargement of the ventricles and extra axial space greater in the anterior region. There are mild scattered nonspecific white matter changes. The upper sella is partially empty. The orbits, sinuses and mastoid air cells do not show significant abnormality. IMPRESSION: No acute findings in the brain or extra-axial region. [facility]-[id number] Performing Organization Address City/State/Zipcode Phone Number [facility] [phone] [place] [address] * Botulinum Toxin Injection (05/25/2018 2:45 PM CDT) Narrative Performed At Carolina Alexander MD 05/25/20184:58 PM Botulinum Injection Date/Time: 05/25/2018 3:50 PM Performed by: CAROLINA ALEXANDER Authorized by: CAROLINA ALEXANDER Consent: Consent obtained:Written Consent given by:Patient Risks discussed:Bleeding, excessive weakness, muscle atrophy, venous thrombosis and pain and discomfort Benefits discussed:Decreased muscle tightness, increased joint range of motion and decreased pain [place] protocol: Procedure explained and questions answered to patient or proxy's satisfaction: yes Test results available and properly labeled: no Relevant documents present and verified: yes Imaging studies available: no Required blood products, implants, devices, and special equipment available: no Site/side marked: no Immediately prior to procedure a time out was called: no Patient identity confirmed:Verbally with patient and provided demographic data Pre-procedure details: Limited electromyography confirmed needle location within the muscle: Yes In some muscles, electrical stimulation was used to localize muscle: No Procedure details: Agent Botulinum Toxin:Dysport (lot [id number] exp 12/22/2018) Total Units Injected:1500 Dysport Medications Administered:1,500 Units abobotulinumtoxinA 500 unit Lower Extremity Muscles: Gastrocnemius Lateral Head - Left Units:250 Gastrocnemius Lateral Head - Right Units:250 Gastrocnemius Medial Head - Left Units:250 Gastrocnemius Medial Head - Right Units:250 Soleus - Left Units:250 Soleus - Right Units:250 EMG Guidance Used: emg guidance used Number of EMG Guidance Used:1 Post-procedure details: Patient tolerance of procedure:Tolerated well, no immediate complications Comments: Benefits discussed included, but were not limited to decreased muscle tightness, increased joint range of motion, and decreased pain. Risks discussed included but not limited to pain and discomfort, bleeding excessive weakness, venous thrombosis, and muscle atrophy. Details of Procedure: Muscles to be treated were identified using anatomical landmarks described by Manuelitoet al;(1994) Skin was cleaned with alcohol.A hollow monopolar needle was introduced to the target muscles. Prior to injection, the needle plunger was aspirated to make sure that the needle was not within a blood vessel. There was no blood retrieved on aspiration. after 02/18/2018 Insurance Payer Benefit Subscriber ID Type Phone Address Plan / Group MEDICARE MEDICARE xxxxxxxxxxx Medicare [place], [place] PART A AND B BCBS BCBS xxxxxxxxxxxx Indemnity PAR/TRAD PLAN Advance Directives Patient has advance care planning documents on file. For more information, francine warner contact: Lyle Preston [phone] [place] [address]
[2019-02-19] MEDS ORDERED: FAMOTIDINE 20 MG/2 ML VIAL IV STA (19:58)
[2019-02-19] MEDS ORDERED: METHYLPREDNISOLONE SOD SUCC 125 MG/2ML VIAL IV ONE (20:00)
[2019-02-19] MEDS ORDERED: DIPHENHYDRAMINE HCL INJ 50 MG/ML VIAL IV ONE (20:00)
== END 2019-02-19 20:27 | disposition home or self-care (01) ==
LOC: FSED 18:05
DX: R21 Rash and other nonspecific skin eruption (principal); L50.0 Allergic urticaria
CPT/HCPCS: 99283; J2930